=== PATIENT | female | born 1945 | race Caucasian/White ===

== ENCOUNTER → 2020-11-06 11:49 | Outpatient (BNVA) | payer MEDICARE, SELFPAY | PROVIDERS: Family Provider Family Medicine; PCP Family Medicine; Visit Provider Family Medicine | DX: I10 Essential (primary) hypertension (principal); Z12.31 Encounter for screening mammogram for malignant neoplasm of breast; Z00.00 Encounter for general adult medical examination without abnormal findings | CPT/HCPCS: 80053; 85025 ==

== ENCOUNTER 2020-12-11 14:50 | Outpatient (CLI) | payer MEDICARE, SELFPAY ==
--- NOTE | 2020-12-11 15:00 | MM_ITS ---
WS: [id number] BILATERAL DIGITAL SCREENING MAMMOGRAPHY WITH CAD CLINICAL INFORMATION: screening mammogram HISTORY: Screening mammogram. No current complaints. COMPARISON: TECHNIQUE: Bilateral CC and MLO views. FINDINGS: Scattered fibroglandular densities bilaterally. No suspicious focal mass, asymmetry, calcifications, or architectural distortion. No evidence of malignancy. Punctate calcifications right breast. MM/[place] [id number] IMPRESSION: BI-RADS: 2-Benign FOLLOW UP: 1 Year Follow-up Recommend return to annual screening mammography.
== END 2020-12-11 14:51 | disposition home or self-care (01) ==
LOC: RADSHAW 14:52
PROVIDERS: PCP Family Medicine; Visit Provider Family Medicine
DX: Z12.31 Encounter for screening mammogram for malignant neoplasm of breast (principal)
CPT/HCPCS: 77067

== ENCOUNTER → 2021-03-12 12:13 | Outpatient (BNVA) | payer MEDICARE, SELFPAY | PROVIDERS: PCP Family Medicine; Visit Provider Family Medicine | DX: M17.11 Unilateral primary osteoarthritis, right knee (principal); M25.561 Pain in right knee | CPT/HCPCS: 73562 ==

== ENCOUNTER → 2021-12-04 11:52 | Outpatient (BNVA) | payer MEDICARE, SELFPAY | PROVIDERS: PCP Family Medicine; Visit Provider Family Medicine | DX: I10 Essential (primary) hypertension (principal) | CPT/HCPCS: 80053; 85025 ==

== ENCOUNTER 2022-06-19 13:22 | Emergency (ER) | payer MEDICARE, SELFPAY ==
[2022-06-19 13:51] VITALS: BP 187/80; PULSE 78; RESP 18; TEMP 36.8; O2SAT 98; BMI 32.3
--- NOTE | 2022-06-19 14:00 | ECG_ITS ---
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 Measurements Intervals [place] Rate: 74 P: 64 GA: 143 QRS: 56 QRSD: 82 T: 74 QT: 403 QTc: 448 Interpretive Statements SINUS RHYTHM Compared to ECG 06/13/2017 13:34:17 Sinus arrhythmia no longer present Electronically Signed On 06-19-2022 17:16:52 CDT by Yehuda Hanson M.D. [email or web address] hospitalFarmstrcleveland clinic medina hospitalSarentis Therapeutics/store/OM/[id number]
[2022-06-19 14:13] LABS: Basophils % 0.2 %; Eosinophils # 0.1 10^3/uL (0.0-0.8); Hematocrit 44.8 % (37.0-47.0); Hemoglobin 14.5 g/dL (11.5-15.3); Lymphocytes # 1.6 10^3/uL (0.8-4.8); Lymphocytes % 18.2 %; Mean Corpuscular HGB Conc 32.4 g/dL (30.0-36.0); Mean Corpuscular Hemoglobin 29.6 pg (28.0-34.0); Mean Corpuscular Volume 91.4 fl (81-99); Mean Platelet Volume 9.4 fL (7.4-10.4); Monocytes # 0.6 10^3/uL (0.2-0.9); Monocytes % 7.3 %; Neutrophils # 6.23 10^3/uL (1.8-7.7); Neutrophils % 72.7 %; Nucleated Red Blood Cells % 0 %; Platelet Count 183 10^3/cmm (130-400); Red Cell Distribution Width 12.9 % (12.1-15.1); White Blood Count 8.6 10^3/uL (4.0-10.0)
[2022-06-19 14:36] LABS: Anion Gap 13.4 (5-19); Blood Urea Nitrogen 11 mg/dL (8-23); Carbon Dioxide 29 mmol/L (22-29); Chloride 104 mmol/L (98-107); Glucose 108 mg/dL (65-115); Osmolality Calculated 294 mOsm/kg (285-295); Potassium 4.4 mmol/L (3.5-5.1); Sodium 142 mmol/L (136-145)
--- NOTE | 2022-06-19 14:44 | XR_ITS ---
WS: [id number] Portable AP upright chest, 06/19/2022 Clinical Data: chest pain Comparison: None. Findings: No nodules, masses or effusions are seen. The heart is normal. The pulmonary vascularity is not increased. No pneumonia or pneumothorax is seen. The aortic arch shows mild calcification. XR/XR chest 1V portable [id number] Impression: Atherosclerosis.
[2022-06-19 15:08] LABS: Troponin(5th) Baseline 6 ng/L (0-10)
[2022-06-19 15:40] VITALS: BP 197/101; PULSE 92; RESP 18; O2SAT 100
--- NOTE | 2022-06-19 15:40 | PC.NURSE ---
PT PLACED ON CONTINUOUS NIBP, SPO2, AND CM
[2022-06-19 16:00] VITALS: BP 219/90; PULSE 88; RESP 19; O2SAT 97
--- NOTE | 2022-06-19 16:15 | ED_ITS ---
HPI - Chest Pain General: Chief Complaint: Chest Pain Stated Complaint: high BP Time Seen by Provider: 06/19/22 15:33 [facility] ED PFSH: Medical History Hypertension Social History Smoking and tobacco status: never smoked Alcohol intake: never Course Vital Signs: Vital signs: Vital Signs Temperature 98.2 F 06/19/22 13:51 Pulse Rate 88 06/19/22 16:00 Respiratory Rate 19 H 06/19/22 16:00 Blood Pressure 219/90 06/19/22 16:00 Pulse Oximetry 97 06/19/22 16:00 Oxygen Delivery Me thod 06/19/22 15:40 MDM - Chest Pain Lab Data : 06/19/22 14:08 06/19/22 14:08 Radiology Impressions Chest X-Ray 06/19/22 14:44 Impression: Atherosclerosis. Laboratory Results WBC 8.6 10^3/uL (4.0-10.0) 06/19/22 14:08 RBC 4.90 10^6/uL (4.1-5.3) 06/19/22 14:08 Hgb 14.5 g/dL (11.5-15.3) 06/19/22 14:08 Hct 44.8 % (37.0-47.0) 06/19/22 14:08 MCV 91.4 fl (81-99) 06/19/22 14:08 MCH 29.6 pg (28.0-34.0) 06/19/22 14:08 MCHC 32.4 g/dL (30.0-36.0) 06/19/22 14:08 RDW 12.9 % (12.1-15.1) 06/19/22 14:08 Plt Count 183 10^3/cmm (130-400) 06/19/22 14:08 MPV 9.4 fL (7.4-10.4) 06/19/22 14:08 Neut % (Auto) 72.7 % 06/19/22 14:08 Lymph % (Auto) 18.2 % 06/19/22 14:08 [place] % (Auto) 7.3 % 06/19/22 14:08 Eos % (Auto) 1.0 % 06/19/22 14:08 Baso % (Auto) 0.2 % 06/19/22 14:08 Neut # (Auto) 6.23 10^3/uL (1.8-7.7) 06/19/22 14:08 Lymph # (Auto) 1.6 10^3/uL (0.8-4.8) 06/19/22 14:08 [place] # (Auto) 0.6 10^3/uL (0.2-0.9) 06/19/22 14:08 Eos # (Auto) 0.1 10^3/uL (0.0-0.8) 06/19/22 14:08 Baso # (Auto) 0.0 10^3/uL (0.0-0.1) 06/19/22 14:08 Nucleated RBC % (auto) 0 % 06/19/22 14:08 Nucleated RBCs # 0.0 /100WBC 06/19/22 14:08 Sodium 142 mmol/L (136-145) 06/19/22 14:08 Potassium 4.4 mmol/L (3.5-5.1) 06/19/22 14:08 Chloride 104 mmol/L (98-107) 06/19/22 14:08 Carbon Dioxide 29 mmol/L (22-29) 06/19/22 14:08 Anion Gap 13.4 (5-19) 06/19/22 14:08 BUN 11 mg/dL (8-23) 06/19/22 14:08 Creatinine 0.8 mg/dL (0.5-0.9) 06/19/22 14:08 GFR Calculation Not Reportable 06/19/22 14:08 Glucose 108 mg/dL (65-115) 06/19/22 14:08 Calculated Osmolality 294 mOsm/kg (285-295) 06/19/22 14:08 Calcium 9.0 mg/dL (8.5-10.5) 06/19/22 14:08 Troponin T Baseline 6 ng/L (0-10) 06/19/22 14:08 Discharge Plan Discharge Condition: Stable Prescriptions: No Action cetirizine [Zyrtec] 10 mg tablet 10 mg PO DAILY PRN (Reason: Allergy Symptoms) naproxen sodium [Aleve] 220 mg capsule 220 mg PO BID PRN (Reason: Pain) betamethasone valerate 0.1 % cream 1 applic topical DAILY PRN (Reason: skin irritation) Qty: 45 4RF Centrum Silver Tablet 1 tab PO QAM lisinopril 10 mg tablet 10 mg PO QAM Referrals: Fide Prasad MD [Primary Care Provider] - Coding Level of Care Code ED Pacu Rn for [facility] Yusra
--- NOTE | 2022-06-19 16:17 | ED_ITS ---
HPI - General Adult General: Chief complaint: Chest Pain Stated complaint: high BP Time Seen by Provider: 06/19/22 15:33 Source: patient Mode of arrival: ambulatory Limitations: no limitations History of Present Illness: 76-year-old female presents emergency room with elevated blood pressure. She had headache and elevated blood pressure the last couple several days. She normally takes lisinopril she has been taking that regularly she is only on 10 mg daily. Has not missed any doses or run out. She had a brief episode of chest pain last night that resolved spontaneously she not had it before only lasted a few seconds and then was gone. She denies any difficulty speech swallowing balance gait. She no has no dysarthria or dysphagia no significant new changes in vision. No abdominal pain no nausea vomiting or diarrhea. Onset (ago): day(s) (2) Location: head Severity: mild Quality: aching Pain Consistency: constant Relieving factors: none Exacerbating factors: none Associated symptoms: Reports chest pain (Fleeting resolved) and headache(s); Deny confusion, cough, diaphoresis, decreased appetite, dyspnea, fevers/chills, malaise, nausea, rash, palpitations, seizures, short of breath, syncope, vomiting or weakness Treatments prior to arrival: none Review of Systems Const: Denies: fever(s), chills, fatigue, malaise or diaphoresis ENMT: Denies: throat pain, ear or mastoid pain, nasal discharge or nasal congestion Card: Reports: chest pain (Fleeting resolved); Denies: palpitations or syncope Resp: Denies: dyspnea GI: Denies: abdominal pain, nausea or vomiting : Denies: flank pain, difficulty voiding, dysuria, urinary frequency or urinary urgency Musc: Denies: neck pain or back pain Skin/Breast: Denies: rash Neuro: Reports: headache(s); Denies: numbness in extremities, weakness in extremities, sensory changes, lack of coordination, difficulty walking, dizziness, vertigo or confusion PFS ED PFSH: Medical History Hypertension Social History Smoking and tobacco status: never smoked Alcohol intake: never Physical Exam Const: COMMON NORMALS: no acute distress GENERAL APPEARANCE: cooperative and comfortable ORIENTATION/CONSCIOUSNESS: Yes awake, Yes oriented to person, Yes oriented to place and Yes oriented to time HENMT: COMMON NORMALS: normocephalic, atraumatic, hearing grossly normal bilaterally, external ears normal, EAC's normal, TM's normal bilaterally, Normal nasal mucous membranes and turbinates present, moist oral mucous membranes and oropharynx normal HEAD & SCALP: normocephalic and atraumatic NOSE: Normal nasal mucous membranes and turbinates present EXTERNAL EAR: Yes external ears normal EXTERNAL AUDITORY CANAL: EAC's normal TYMPANIC MEMBRANE: TM's normal bilaterally Eye: COMMON NORMALS: Equal, round and reactive pupils present, EOMs intact bilaterally, conjunctivae normal and no scleral icterus CONJUNCTIVA: Yes conjunctivae normal PUPIL: Yes Equal, round and reactive pupils present Neck/C-Spine: COMMON NORMALS: full ROM, no lymphadenopathy, supple and no JVD Resp: COMMON NORMALS: normal respiratory effort, No retractions, No use of accessory muscles and clear to auscultation bilaterally AUSCULTATION: clear to auscultation bilaterally Cardio: COMMON NORMALS: no JVD, regular rate, regular rhythm and No murmurs present (Cardio) RATE: regular rate RHYTHM: regular rhythm GI: COMMON NORMALS: Soft to palpation and No hepatosplenomegaly present AUSCULTATION: Yes normoactive bowel sounds PALPATION: Yes Soft to palpation, No Tenderness to palpation present (GI), No Guarding due to palpation present (GI) and Yes No hepatosplenomegaly present Extremity: COMMON NORMALS: normal to inspection, capillary refill normal, no clubbing, cyanosis or edema, no calf tenderness and no pedal edema Neuro: SENSORIUM/ORIENTATION: Yes oriented to person, Yes oriented to place and Yes oriented to time Skin: COMMON NORMALS: no rashes or lesions noted GENERAL SKIN EXAM: no rashes or lesions noted Course Vital Signs: Vital signs: Vital Signs Temperature 98.2 F 06/19/22 13:51 Pulse Rate 90 06/19/22 17:45 Respiratory Rate 14 06/19/22 17:25 Blood Pressure 167/74 06/19/22 17:45 Pulse Oximetry 98 06/19/22 17:45 Oxygen Delivery Me thod 06/19/22 15:40 [facility] - General Adult Medical Decision Making Blood pressure improved with medications given patient has not had any further symptoms remains neurologically intact. We will discharge her home on amlodipine 5 mg daily increase lisinopril to 20 daily and add Toprol-XL 25 p.o. daily. Recheck her blood pressure with her primary care doctor within the next 3 days at the office return to the ER if is further problems. Medical Records I reviewed the patient's medical records. Lab Data I reviewed the patient's lab results. : 06/19/22 14:08 06/19/22 14:08 Radiology Impressions Chest X-Ray 06/19/22 14:44 Impression: Atherosclerosis. Laboratory Results WBC 8.6 10^3/uL (4.0-10.0) 06/19/22 14:08 RBC 4.90 10^6/uL (4.1-5.3) 06/19/22 14:08 Hgb 14.5 g/dL (11.5-15.3) 06/19/22 14:08 Hct 44.8 % (37.0-47.0) 06/19/22 14:08 MCV 91.4 fl (81-99) 06/19/22 14:08 MCH 29.6 pg (28.0-34.0) 06/19/22 14:08 MCHC 32.4 g/dL (30.0-36.0) 06/19/22 14:08 RDW 12.9 % (12.1-15.1) 06/19/22 14:08 Plt Count 183 10^3/cmm (130-400) 06/19/22 14:08 MPV 9.4 fL (7.4-10.4) 06/19/22 14:08 Neut % (Auto) 72.7 % 06/19/22 14:08 Lymph % (Auto) 18.2 % 06/19/22 14:08 [place] % (Auto) 7.3 % 06/19/22 14:08 Eos % (Auto) 1.0 % 06/19/22 14:08 Baso % (Auto) 0.2 % 06/19/22 14:08 Neut # (Auto) 6.23 10^3/uL (1.8-7.7) 06/19/22 14:08 Lymph # (Auto) 1.6 10^3/uL (0.8-4.8) 06/19/22 14:08 [place] # (Auto) 0.6 10^3/uL (0.2-0.9) 06/19/22 14:08 Eos # (Auto) 0.1 10^3/uL (0.0-0.8) 06/19/22 14:08 Baso # (Auto) 0.0 10^3/uL (0.0-0.1) 06/19/22 14:08 Nucleated RBC % (auto) 0 % 06/19/22 14:08 Nucleated RBCs # 0.0 /100WBC 06/19/22 14:08 Sodium 142 mmol/L (136-145) 06/19/22 14:08 Potassium 4.4 mmol/L (3.5-5.1) 06/19/22 14:08 Chloride 104 mmol/L (98-107) 06/19/22 14:08 Carbon Dioxide 29 mmol/L (22-29) 06/19/22 14:08 Anion Gap 13.4 (5-19) 06/19/22 14:08 BUN 11 mg/dL (8-23) 06/19/22 14:08 Creatinine 0.8 mg/dL (0.5-0.9) 06/19/22 14:08 GFR Calculation Not Reportable 06/19/22 14:08 Glucose 108 mg/dL (65-115) 06/19/22 14:08 Calculated Osmolality 294 mOsm/kg (285-295) 06/19/22 14:08 Calcium 9.0 mg/dL (8.5-10.5) 06/19/22 14:08 Troponin T Baseline 6 ng/L (0-10) 06/19/22 14:08 Troponin T 120 Minute 6.56 ng/L (0-10) 06/19/22 15:56 Delta Troponin T 0.56 ABS# (0-10) 06/19/22 15:56 Discharge Plan Discharge Patient Disposition: Home Clinical Impression: Hypertension Condition: Stable Prescriptions: New Toprol XL 25 mg tablet extended release 24 hr 25 mg PO DAILY Qty: 30 0RF amlodipine 5 mg tablet 5 mg PO DAILY Qty: 30 0RF Changed lisinopril 10 mg tablet 20 mg PO QAM Qty: 30 0RF No Action cetirizine [Zyrtec] 10 mg tablet 10 mg PO DAILY PRN (Reason: Allergy Symptoms) naproxen sodium [Aleve] 220 mg capsule 220 mg PO BID PRN (Reason: Pain) betamethasone valerate 0.1 % cream 1 applic topical DAILY PRN (Reason: skin irritation) Qty: 45 4RF Centrum Silver Tablet 1 tab PO QAM Discharge Orders: Discharge ED (Routine); Ordered 06/19/22 Ordered By: Neal Bosch Referrals: Fide Prasad MD [Primary Care Provider] - Discharge Diet: Usual diet Discharge Activity: Resume usual activity Patient Instructions: Opioid Safety Activity Restrictions/Additional Instructions: Recheck blood pressure with your primary care doctor within the next week. Coding Level of Care Code ED Accounting Office Manager for Chg Fwd Exam Comprehensive
[2022-06-19] MEDS: amlodipine 10 mg Tablet PO (16:24)
[2022-06-19] MEDS: hyDRALAzine 20 mg/mL INJ 1 mL IVP (16:24)
[2022-06-19] MEDS: labetalol 5 mg/mL SDV 20mL 10 MG IVP (16:24)
--- NOTE | 2022-06-19 16:44 | ECG_ITS ---
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 Measurements Intervals [place] Rate: 88 P: 61 OR: 153 QRS: 68 QRSD: 86 T: 76 QT: 390 QTc: 473 Interpretive Statements SINUS RHYTHM NONSPECIFIC ST & T-WAVE ABNORMALITY Compared to ECG 06/19/2022 14:00:08 T-wave abnormality now present Electronically Signed On 06-19-2022 17:19:55 CDT by Yehuda Hanson M.D. [email or web address] [email or web address] memorial hospital.[employer]/store/[id number]
[2022-06-19 16:48] LABS: Troponin 5 2HR 6.56 ng/L (0-10)
[2022-06-19 16:50] LABS: Troponin 5 2HR Delta 0.56 ABS# (0-10)
[2022-06-19 17:25] VITALS: BP 167/74; PULSE 87; RESP 14; O2SAT 99
[2022-06-19 17:45] VITALS: BP 167/74; PULSE 90; O2SAT 98
== END 2022-06-19 17:31 | disposition home or self-care (01) ==
PROVIDERS: Emergency Medicine; Emergency Provider Family Medicine; PCP Family Medicine
DX: I10 Essential (primary) hypertension (principal)
CPT/HCPCS: 36415; 71045; 80048; 84484; 85025; 93005; 96374; 96375; 99285; J0360; J3490

== ENCOUNTER → 2023-07-14 09:33 | Outpatient (BNVA) | payer MEDICARE, SELFPAY | PROVIDERS: PCP Family Medicine; Visit Provider Family Medicine | DX: I10 Essential (primary) hypertension (principal); M81.0 Age-related osteoporosis without current pathological fracture; M17.11 Unilateral primary osteoarthritis, right knee | CPT/HCPCS: 80053; 85025 ==

== ENCOUNTER 2024-01-02 14:39 | Outpatient (CLI) | payer MEDICARE, SELFPAY ==
--- NOTE | 2024-01-02 14:44 | XR_ITS ---
WS: [id number] DEXA (DUAL ENERGY X-RAY ABSORPTIOMETRY) Bone mineral density was performed using a [employer] machine. HISTORY: SCREENING STUDY COMPARISON: None available. Lumbar spine BMD (L1-L4): 1.081 g/cm2 T score: -0.8 Z score: 0.5 Total hip BMD: Left: 0.942 g/cm2. T score: -0.5 Z score: 1.0 Right: 0.922 g/cm2. T score: -0.7 Z score: 0.8 10 year probability of a major osteoporotic fracture is 12.7%. IMPRESSION: NORMAL BONE MINERAL DENSITY based upon the WHO classification for females.
== END 2024-01-02 14:40 | disposition home or self-care (01) ==
LOC: RAD 14:40
PROVIDERS: PCP Family Medicine; Visit Provider Family Medicine
DX: M81.0 Age-related osteoporosis without current pathological fracture (principal)
CPT/HCPCS: 77080

== ENCOUNTER → 2024-12-06 12:21 | Outpatient (BNVA) | payer MEDICARE, SELFPAY | PROVIDERS: PCP Family Medicine; Visit Provider Family Medicine | DX: I10 Essential (primary) hypertension (principal) | CPT/HCPCS: 80053; 85025 ==

== ENCOUNTER 2025-05-09 10:22 | Emergency (ER) | payer MEDICARE, SELFPAY ==
[2025-05-09 10:31] VITALS: BP 195/75; PULSE 90; RESP 18; TEMP 36.6; O2SAT 98; BMI 31.4
--- OUTSIDE RECORDS SUMMARY | 2025-05-09 10:41 | XMS_ITS | Encounter Summary ---
Author Organization [facility] Address [address] [place] [address] Care Team Providers Care Subcontract Administrator Name Role Phone Fide Prasad MD Primary Care Provider [phone] Encounter Details Date Type Department Care Team (Late st Contact Info) Description 03/12/2017 Ancillary Orders [facility] Admitting [address] [place] [address] Arthur Caraballo MD [address] [phone] Screening for tuberculosis Social History Tobacco Use Types Packs/Day Years Used Date Smoking Tobacco: Never Alcohol Use Standard Drinks/Week Comments Not Asked 0 (1 standard drink = 0.6 oz pur e alcohol) Comments No Sex and Gender Information Value Date Recorded Sex Assigned at Not on file Legal Sex Female 11:28 AM CDT Gender Identity Not on file Sexual Orientation Not on file documented as of this encounter Plan of Treatment Not on file documented as of this encounter Results * XR CHEST PA AND LATERAL (03/12/2017 3:35 PM CDT) Anatomical Region Laterality Modality Chest Computed Radiogr aphy 03/12/2017 3:40 PM CDT Impressions 03/13/2017 8:25 AM CDT IMPRESSION: Please see below. Exam: XR CHEST PA AND LATERAL Date/Time of Exam: 03/12/2017 3:35 PM Reason For Exam: Screening for tuberculosis. Findings: The heart and mediastinum appear normal. The lungs show mild interstitial prominence without active infiltrate or mass or effusion appreciated. The vicky appear normal. IMPRESSION: No active chest disease is seen. Narrative Procedure Note Kahlil Reese MD - 03/13/2017 IMPRESSION IMPRESSION: Please see below. Exam: XR CHEST PA AND LATERAL Date/Time of Exam: 03/12/2017 3:35 PM Reason For Exam: Screening for tuberculosis. Findings: The heart and mediastinum appear normal. The lungs show mild interstitial prominence without active infiltrate or mass or effusion appreciated. The vicky appear normal. IMPRESSION: No active chest disease is seen. Arthur Caraballo MD DIAGNOSTIC IMAGING ORDER MARLO Final Result documented in this encounter Visit Diagnoses Diagnosis Screening for tuberculosis Screening examination for pulmonary tuberculosis Screening for tuberculosis Screening examination for pulmonary tuberculosis documented in this encounter Care Teams Subcontract Administrator Relationship Specialty Start Date End Date Fide Prasad MD [address] [phone] PCP - General Family Practice 03/12/17 documented as of this encounter
--- OUTSIDE RECORDS SUMMARY | 2025-05-09 10:41 | XMS_ITS | Clinical Summary ---
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
--- OUTSIDE RECORDS SUMMARY | 2025-05-09 10:41 | XMS_ITS | Clinical Summary ---
Author Organization [facility] Address [address] [place] [address] Care Team Providers Care Duct Layer Supervisor Name Role Phone Fide Prasad MD Primary Care Provider [phone] Allergies No known active allergies Medications No known medications Active Problems No known active problems Social History Tobacco Use Types Packs/Day Years Used Date Smoking Tobacco: Never Alcohol Use Standard Drinks/Week Comments Not Asked 0 (1 standard drink = 0.6 oz pur e alcohol) Comments No Sex and Gender Information Value Date Recorded Sex Assigned at Not on file Legal Sex Female 11:28 AM CDT Gender Identity Not on file Sexual Orientation Not on file Last Filed Vital Signs Vital Sign Reading Time Taken Comments Blood Pressure 170/90 07/29/2013 1:26 PM CDT Pulse 78 07/29/2013 1:26 PM CDT Temperature 36.6 C (97.9 F) 07/29/2013 1:26 PM CDT Respiratory Rate 20 07/29/2013 1:26 PM CDT Oxygen Saturation 98% 07/29/2013 1:26 PM CDT Inhaled Oxygen Concentration - - Weight 78.9 kg (174 lb) 07/29/2013 1:26 PM CDT Height - - Body Mass Index - - Plan of Treatment Health Maintenance Due Date Last Done Comments DTAP/TDAP/TD VACCINES (1 - Tdap) 1966 PNEUMOCOCCAL VACCINE 50+ YEARS (1 of 1 - PCV) 07/13/19 97 ZOSTER VACCINE (1 of 2) 1997 OSTEOPOROSIS SCREENING 2012 RSV VACCINE (60+ or ) (1 - 1-dose 75+ series) 2022 INFLUENZA VACCINE (#1) 2025 Insurance MEDICARE RAILROAD * Guarantor: [id number] Account Type Relation to Patient Date of Phone Billing Address Workers Comp Employer [address] [place] [id number] WORKERS [employer] Compensation Care Teams Duct Layer Supervisor Relationship Specialty Start Date End Date Fide Prasad MD [address] [facility] [address] [place] [phone] PCP - General Family Practice 03/12/17
--- OUTSIDE RECORDS SUMMARY | 2025-05-09 10:41 | XMS_ITS | Encounter Summary ---
Author Organization [facility] Address [address] [place] [address] Care Team Providers Care Business Banking Relationship Manager Name Role Phone Fide Prasad MD Primary Care Provider Encounter Details Date Type Department Care Team (Late st Contact Info) Description 03/12/2017 Ancillary Orders [facility] Admitting [address] [place] [address] Arthur Caraballo MD [address] [phone] Social History Tobacco Use Types Packs/Day Years [...] on file documented as of this encounter Visit Diagnoses Not on filedocumented in this encounter Care Teams Business Banking Relationship Manager Relationship Specialty Start Date End Date Fide Prasad MD [address] [facility] [address] [place] [address] PCP - General Family Practice 03/12/17 documented as of this encounter
[2025-05-09 12:24] LABS: Hematocrit 42.5 % (36-47); Hemoglobin 13.70 g/dL (11.27-16.99); Mean Corpuscular HGB Conc 32.2 g/dL (30-55); Mean Corpuscular Hemoglobin 29.3 pg (27-33); Mean Corpuscular Volume 91.0 fl (85-98); Nucleated Red Blood Cells % 0 %; Platelet Count 174 10^3/cmm (157-399); Red Blood Count 4.67 10^6/uL (3.85-5.65); White Blood Count 8.12 10^3/uL (3.29-11.43)
[2025-05-09 12:38] LABS: Alanine Aminotransferase 17 U/L (0-33); Albumin Level 4.0 g/dL (3.5-5.2); Alkaline Phosphatase 67 U/L (35-105); Anion Gap 12.3 (5-19); Aspartate Amino Transferase 15 U/L (0-32); Blood Urea Nitrogen 13 mg/dL (8-23); Calcium 9.2 mg/dL (8.5-10.5); Carbon Dioxide 27 mmol/L (22-29); Chloride 105 mmol/L (98-107); Creatinine Clr Calc Pharmacy 56.9594; Globulin 3.5 g/dL (1.3-4.6); Glucose 100 mg/dL (65-115); Osmolality Calculated 290 mOsm/kg (285-295); Potassium 4.3 mmol/L (3.5-5.1); Sodium 140 mmol/L (136-145); Total Protein 7.5 g/dL (6.6-8.7)
--- NOTE | 2025-05-09 13:34 | ECG_ITS ---
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 Measurements Intervals [place] Rate: 75 P: 52 SD: 130 QRS: 45 QRSD: 86 T: 63 QT: 396 QTc: 443 Interpretive Statements SINUS RHYTHM Compared to ECG 06/19/2022 17:11:16 T-wave abnormality no longer present Electronically Signed On 05-10-2025 08:19:59 CDT by Yehuda Hanson M.D. [id number] [id number]
--- NOTE | 2025-05-09 13:34 | CT_ITS ---
WS: [id number] Exam: CT head wo con* [id number] Date/Time of Exam: 05/09/2025 1:53 PM Reason For Exam: dizzy DLP: 1014.[address] scans at [facility] use at least one of these dose optimization techniques: automated exposure control; mA and/or kV adjustment per patient size (includes targeted exams where dose is matched to clinical indication); or iterative reconstruction. There was no sign of space-occupying mass or acute intracranial bleed. The ventricles and basal cisterns are normal in size. The brainstem and cerebellum appear normal. No extra-axial fluid collections. The skull and scalp are unremarkable. Mastoids and facial sinuses are clear. Normal orbits and optic globes. CT/CT head wo con* [id number] IMPRESSION: 1. Unremarkable noncontrast CT scan of the brain.
--- NOTE | 2025-05-09 13:42 | ED_ITS ---
HPI - General Adult 2 General: Chief complaint: General Medical Stated complaint: High Bp Time Seen by Provider: 05/09/25 13:02 Source: patient Mode of arrival: ambulatory Limitations: no limitations History of Present Illness: 79-year-old female has a history of hype rtension states her blood pressure has been raised since last night states she has some dizziness along with some posterior head pain since last night as well. She states she has had the symptoms in the past when her blood pressure gets high. She denies any slurred speech denies any difficulty walking denies any chest pain. Associated symptoms: Deny chest pain, dyspnea, headache(s), nausea, rash or vomiting Related Data Home Medications ?Medication ?Instructions ?Recorded ?Confirmed naproxen sodium 220 mg capsule 220 mg PO BID PRN Pain 11/06/20 12/06/24 (Aleve) pgrchclpkuac-wlacuytk-wbjweg tablet 1 tab PO QAM 06/1912/06/24 krill oil 500 mg capsule 350 mg PO 12/11/22 12/06/24 omeprazole magnesium 20 mg 20 mg PO DAILY 07/14/2301/25 tablet,delayed release (Prilosec OTC) Previous Rx's ?Medication ?Instructions ?Recorded betamethasone valerate 0.1 % 1 applic topical DAILY MA N skin 11/14/21 topical cream irritation #45 grams cetirizine 10 mg tablet (Zyrtec) 10 mg PO DAILY PRN Al lergy 08/04/24 Symptoms #30 tabs amoxicillin 875 mg tablet 875 mg PO BID #14 tabs 12/06 lisinopril 10 mg tablet 10 mg PO DAILY #180 tabs 01/25 meclizine 25 mg tablet 25 mg PO TID PRN dizziness # 30 tabs 05/09/25 Allergies Allergy/AdvReac Type Severity Reaction Status Date / Time hydrocodone Allergy unknown Verified 12/06/24 11:22 ibuprofen Allergy high blood Verified 12/06/24 11:22 pressure Review of Systems 2 Const: Denies: fever(s), chills, body aches or change in appetite Eyes: Denies: blurry vision or eye discomfort ENMT: Denies: throat pain or dental pain Card: Denies: chest pain Resp: Denies: dyspnea GI: Denies: abdominal pain, nausea, vomiting or diarrhea Musc: Denies: neck pain or back pain Skin/Breast: Denies: rash Neuro: Denies: headache(s) PFSH ED 2 PFSH: Medical History Hypertension Social History Smoking and tobacco/nicotine status: never used tobacco/nicotine Alcohol intake: never Substance/Drug Use: never Adopted: No Caregiver/support person: No Lives independently: Yes Household members: spouse Housing: Manufactured/Mobile home Marital status: Number of children: 2 Number of grandchildren: 5 Highest education level completed: Some College, No Degree service: No Current occupational status: retired Current occupational exposures/hazards: No Pets and animals: Yes Leisure activites: exercise and volunteer work Sexually active: Yes Do you think of yourself as: Straight/Heterosexual Current gender identity: Female Sonya/L[employer]: [employer] Special sonya needs: No Agree to transfusion: Yes Physical Exam 2 Const: COMMON NORMALS: no acute distress, patient oriented x3 and healthy appearing HENMT: COMMON NORMALS: normocephalic and atraumatic HEAD & SCALP: n ormocephalic and atraumatic Eye: COMMON NORMALS: Equal, round and reactive pupils present and EOMs intact bilaterally PUPIL: Yes Equal, round and reactive pupils present Neck/C-Spine: COMMON NORMALS: full ROM and supple Chest: COMMONS NORMALS: normal inspection of the chest and normal palpation of entire chest wall Resp: COMMON NORMALS: normal respiratory effort, No retractions, No use of accessory muscles and clear to auscultation bilaterally AUSCULTATION: clear to auscultation bilaterally Cardio: COMMON NORMALS: regular rate, regular rhythm and No murmurs present (Cardio) RATE: regular rate RHYTHM: regular rhythm Extremity: COMMON NORMALS: normal to inspection and full ROM Neuro: COMMON NORMALS: patient oriented x3, moves all extremities and no focal motor deficits Psych: COMMON NORMALS: mental status grossly normal, Normal thought process present and cooperative THOUGHT PROCESS: Normal thought process present Skin: COMMON NORMALS: no rashes or lesions noted and no wounds GENERAL SKIN EXAM: no rashes or lesions noted Course 2 Vital Signs: Vital signs: Vital Signs Temperature 98 F 05/09/25 10:31 Pulse Rate 77 05/09/25 14:41 Respiratory Rate 18 05/09/25 10:31 Blood Pressure 147/59 05/09/25 14:41 Pulse Oximetry 98 05/09/25 10:31 Oxygen Delivery Me thod Room Air 05/09/25 10:31 MDM - General Adult Medical Decision Making Patient presents here with hypertension along with some dizziness she has been well-appearing here she feels much improved after blood pressure meds and meclizine no signs of posterior stroke she is able to ambulate without any difficulties she is follow-up with PCP return if worsening. Medical Records I reviewed the patient's medical records. Lab Data I reviewed the patient's lab results. 05/09/25 12:14 05/09/25 12:[address] 05/09/25 13:34 IMPRESSION: 1. Unremarkable noncontrast CT scan of the brain. Laboratory Results WBC 8.12 10^3/uL (3.29-11.43) 05/09/25 12:14 RBC 4.67 10^6/uL (3.85-5.65) 05/09/25 12:14 Hgb 13.70 g/dL (11.27-16.99) 05/09/25 12:14 Hct 42.5 % (36-47) 05/09/25 12:14 MCV 91.0 fl (85-98) 05/09/25 12:14 MCH 29.3 pg (27-33) 05/09/25 12:14 MCHC 32.2 g/dL (30-55) 05/09/25 12:14 RDW 12.8 % (12.1-15.1) 05/09/25 12:14 Plt Count 174 10^3/cmm (157-399) 05/09/25 12:14 MPV 9.5 fL (7.4-10.4) 05/09/25 12:14 Neut % (Auto) 66.5 % 05/09/25 12:14 Lymph % (Auto) 22.0 % 05/09/25 12:14 [place] % (Auto) 7.3 % 05/09/25 12:14 Eos % (Auto) 2.5 % 05/09/25 12:14 Baso % (Auto) 0.5 % 05/09/25 12:14 Neut # (Auto) 5.40 10^3/uL (1.8-7.7) 05/09/25 12:14 Lymph # (Auto) 1.8 10^3/uL (0.8-4.8) 05/09/25 12:14 [place] # (Auto) 0.6 10^3/uL (0.2-0.9) 05/09/25 12:14 Eos # (Auto) 0.2 10^3/uL (0.0-0.8) 05/09/25 12:14 Baso # (Auto) 0.0 10^3/uL (0.0-0.1) 05/09/25 12:14 Nucleated RBC % (auto) 0 % 05/09/25 12:14 Nucleated RBCs # 0.0 /100WBC 05/09/25 12:14 Sodium 140 mmol/L (136-145) 05/09/25 12:14 Potassium 4.3 mmol/L (3.5-5.1) 05/09/25 12:14 Chloride 105 mmol/L (98-107) 05/09/25 12:14 Carbon Dioxide 27 mmol/L (22-29) 05/09/25 12:14 Anion Gap 12.3 (5-19) 05/09/25 12:14 BUN 13 mg/dL (8-23) 05/09/25 12:14 Creatinine 0.7 mg/dL (0.5-0.9) 05/09/25 12:14 GFR Calculation Not Reportable 05/09/25 12:14 Glucose 100 mg/dL (65-115) 05/09/25 12:14 Calculated Osmolality 290 mOsm/kg (285-295) 05/09/25 12:14 Calcium 9.2 mg/dL (8.5-10.5) 05/09/25 12:14 Total Bilirubin 0.7 mg/dL (0.15-1.2) 05/09/25 12:14 AST 15 U/L (0-32) 05/09/25 12:14 ALT 17 U/L (0-33) 05/09/25 12:14 Alkaline Phosphatase 67 U/L (35-105) 05/09/25 12:14 Total Protein 7.5 g/dL (6.6-8.7) 05/09/25 12:14 Albumin 4.0 g/dL (3.5-5.2) 05/09/25 12:14 Globulin 3.5 g/dL (1.3-4.6) 05/09/25 12:14 All radiology interpretation(s) finalized by discharge EKG Data EKG 1: I personally reviewed and interpreted this EKG as follows: EKG interpretation date: 05/09/25 EKG interpretation time: 14:12 Interpretation: nsr hr 75 qrs 86 qtc 424 Computer generated interpretation: Head CT 05/09/25 13:34 IMPRESSION: 1. Unremarkable noncontrast CT scan of the brain. Discharge Plan Discharge Patient Disposition: Home Clinical Impression: Hypertension, Dizziness Condition: Stable Prescriptions: New meclizine 25 mg tablet 25 mg PO TID PRN (Reason: dizziness) Qty: 30 0RF No Action naproxen sodium [Aleve] 220 mg capsule 220 mg PO BID PRN (Reason: Pain) omeprazole magnesium [Prilosec OTC] 20 mg tablet,delayed release (DR/EC) 20 mg PO DAILY krill oil 500 mg capsule 350 mg PO lisinopril 10 mg tablet 10 mg PO DAILY Qty: 180 1RF amoxicillin 875 mg tablet 875 mg PO BID Qty: 14 0RF betamethasone valerate 0.1 % cream 1 applic topical DAILY PRN (Reason: skin irritation) Qty: 45 4RF cetirizine [Zyrtec] 10 mg tablet 10 mg PO DAILY PRN (Reason: Allergy Symptoms) Qty: 30 8RF Centrum Silver Tablet 1 tab PO QAM Discharge Orders: Discharge ED (Routine); Ordered 05/09/25 Ordered By: Lidia Gleason Referrals: Fide Prasad MD [Primary Care Provider, Family Practice] - 4-7 days Discharge Diet: Advance as tolerated Discharge Activity: Resume usual activity Patient Instructions: Hypertension (ED), Dizziness (ED) Print Language: Swiss Coding Level of Care Code ED Associate Professor Of History for Armida Meng
[2025-05-09 14:08] VITALS: BP 217/81
[2025-05-09] MEDS: hyDRALAzine 20 mg/mL INJ 1 mL 10 MG IVP (14:12)
[2025-05-09] MEDS: labetalol 5 mg/mL SDV 20mL 10 MG IVP (14:38)
[2025-05-09 14:41] VITALS: BP 147/59; PULSE 77
[2025-05-09 15:24] VITALS: BP 153/62; PULSE 76; O2SAT 98
== END 2025-05-09 15:25 | disposition home or self-care (01) ==
PROVIDERS: Physician Assistant; Emergency Provider Emergency Medicine; PCP Family Medicine
DX: I10 Essential (primary) hypertension (principal); R42 Dizziness and giddiness
CPT/HCPCS: 36415; 70450; 80053; 85025; 93005; 96374; 96375; 99285; J0360; J3490; J8597